=== PATIENT | female | born 1970 | race Caucasian/White ===

== ENCOUNTER 2019-03-10 07:38 | Emergency (ER) | payer BC, OTHER ==
[~2019-03-10] VITALS: Ht 167.6 cm; Wt 88.6 kg
[2019-03-10 07:40] VITALS: BP 134/75
--- NOTE | 2019-03-10 07:51 | NUR ---
PATIENT AMBULATED TO BED 8 AT THIS TIME.
--- NOTE | 2019-03-10 08:10 | NUR ---
49 YO F BIB SELF C/O HEART PALPITATION X 1 WEEK AND HEADACHE 3/10 X 1 TODAY RADIATING TO LEFT ARM. PT DENIES TRAUMA, -N/V/D. PREVIOUS MEDICAL HX: DM,HTN,ANGINA, HYPERLIPIDEMIA. CONNECTED TO MONITOR WITH V/S STABLE. AWAITING FOR ER MD FOR FURTHER EVALUATION. SIDERAIL UP X1 FOR SAFETY.
--- NOTE | 2019-03-10 08:15 | NUR ---
GISEL CAMACHO AT BEDSIDE EVALUATING PT.
--- NOTE | 2019-03-10 08:32 | NUR ---
Radiology at bedside for x -ray
[2019-03-10 08:47] LABS: ANION GAP 10.4 (8-16); CARBON DIOXIDE 28.7 mmol/L (21-32); CREATININE 0.6 mg/dL (0.6-1.3); POTASSIUM 4.1 mmol/L (3.5-5.1)
[2019-03-10 08:56] LABS: BASOPHILS # (AUTO) 0.1 K/uL (0.00-0.22); BASOPHILS % (AUTO) 1.2 % (0.0-2.0); EOSINOPHILS # (AUTO) 0.1 K/uL (0-0.4); EOSINOPHILS % (AUTO) 0.8 % (0.0-4.0); HEMATOCRIT 40.8 % (36-48); HEMOGLOBIN 13.5 g/dL (12.0-16.0); LYMPHOCYTES # (AUTO) 2.2 K/uL (2.5-16.5); LYMPHOCYTES % (AUTO) 32.6 % (20.5-51.1); MEAN CORPUSCULAR HEMOGLOBIN 27 pg (27-31); MEAN CORPUSCULAR HGB CONC 33 g/dL (33-37); MEAN CORPUSCULAR VOLUME 80.9 fL (80-94); MONOCYTES # (AUTO) 0.4 K/uL (0.8-1.0); MONOCYTES % (AUTO) 6.4 % (1.7-9.3); PLATELET COUNT (AUTO) 174 K/uL (140-450); RED BLOOD CELL COUNT(AUTO) 5.05 MIL/uL (4.20-5.40); RED CELL DISTRIBUTION WIDTH 15.3 % (11.6-13.7); WHITE BLOOD COUNT (AUTO) 6.8 K/uL (4.8-10.8)
[2019-03-10 09:02] LABS: ALBUMIN 3.7 g/dL (3.4-5.0); THYROID STIMULATING HORMONE 1.48 uIU/mL (0.34-3.74); TOTAL BILIRUBIN 0.3 mg/dL (0.0-1.0)
[2019-03-10 09:37] VITALS: BP 136/73
--- NOTE | 2019-03-10 09:38 | NUR ---
Patient discharged with v/s stable. Written and verbal after care instructions given and explained. Patient verbalized understanding. Ambulatory with steady gait. All questions addressed prior to discharge. Advised to follow up with PMD and resident care director.
== END 2019-03-10 09:38 | disposition home or self-care (01) ==
LOC: MED 07:38
DX: R00.2 Palpitations (principal); E11.9 Type 2 diabetes mellitus without complications; I10 Essential (primary) hypertension; Z88.5 Allergy status to narcotic agent
CPT/HCPCS: 36415; 71045; 80053; 81002; 81025; 82948; 84443; 84484; 85025; 93005; 99284; Q0092

== ENCOUNTER 2020-01-02 09:09 | Emergency (ER) | payer OTHER ==
[~2020-01-02] VITALS: Ht 165.1 cm; Wt 82.1 kg
[2020-01-02 09:11] VITALS: BP 164/111
--- NOTE | 2020-01-02 09:15 | NUR ---
Patient ambulated to bed 11. RN evaluating patient at bedside.
--- NOTE | 2020-01-02 09:18 | NUR ---
PT TO RESTROOM
[2020-01-02] MEDS ORDERED: KETOROLAC 15 MG/ML VIAL IVP ONE (09:25)
--- NOTE | 2020-01-02 09:35 | NUR ---
49YO F C/O FLANK PAIN X 30MINS. PT STATES A SUDDEN STABBING PAIN 10/10 WHEN SHE WAS STANDING UP FROM A BENDING POSITION. PT STATES THAT PAIN STARTED IN FLANK AREA AND SPREAD TO ABDOMINAL AREA. DENIES N/V, URINARY SYMPTOMS. PT TOOK IBUPROFEN 30MINS AGO WHICH PROVIDED NO RELIEF. VSS. ABDOMEN IS TENDER ON EPIGASTRIC AND RLQ. BOWEL SOUNDS ACTIVE. PT IN BED POSITIONED COMFORTABLY. ER MD SAW PT AT BEDSIDE. PMH: DM, ASTHMA, HTN, HYPERCHOLESTEROLEMIA MEDS: METFORMIN, INSULIN, HCTZ, LOSARTAN, MOTELUKAST, ASPIRIN, ATORVASTATIN ALLERGY: MORPHINE
[2020-01-02 09:55] LABS: BASOPHILS % (AUTO) 0.6 % (0.0-2.0); EOSINOPHILS % (AUTO) 0.5 % (0.0-4.0); HEMATOCRIT 39.8 % (36-48); LYMPHOCYTES # (AUTO) 1.8 K/uL (2.5-16.5); LYMPHOCYTES % (AUTO) 29.6 % (20.5-51.1); MEAN CORPUSCULAR HEMOGLOBIN 27 pg (27-31); MEAN CORPUSCULAR HGB CONC 33 g/dL (33-37); MEAN CORPUSCULAR VOLUME 82.5 fL (80-94); MONOCYTES # (AUTO) 0.4 K/uL (0.8-1.0); NEUTROPHILS # (AUTO) 3.9 K/uL (1.8-7.7); NEUTROPHILS % (AUTO) 63.3 % (42.2-75.2); PLATELET COUNT (AUTO) 173 K/uL (140-450); RED BLOOD CELL COUNT(AUTO) 4.82 MIL/uL (4.20-5.40); RED CELL DISTRIBUTION WIDTH 15.5 % (11.6-13.7); WHITE BLOOD COUNT (AUTO) 6.1 K/uL (4.8-10.8)
[2020-01-02 09:55] LABS: APPEARANCE,URINE SL CLOUDY (CLEAR); BILIRUBIN,URINE NEGATIVE (NEGATIVE); BLOOD, URINE 3+ (NEGATIVE); COLOR,URINE YELLOW (YELLOW); LEUKOCYTE ESTERASE ,URINE NEGATIVE (NEGATIVE); NITRITE, URINE NEGATIVE (NEGATIVE); PH,URINE 5.5 (5.0-9.0); UGLUCOSE 3+ (NEGATIVE)
[2020-01-02 10:18] LABS: RBC,URINE 80-100 /HPF (0-5); WBC,URINE 0-5 /HPF (0-5)
[2020-01-02 10:27] LABS: ALBUMIN 3.4 g/dL (3.4-5.0); ANION GAP 11.5 (8-16); CARBON DIOXIDE 28.4 mmol/L (21-32); CREATININE 0.7 mg/dL (0.6-1.3); POTASSIUM 3.9 mmol/L (3.5-5.1); TOTAL BILIRUBIN 0.4 mg/dL (0.0-1.0)
[2020-01-02 11:40] VITALS: BP 164/111
== END 2020-01-02 11:30 | disposition home or self-care (01) ==
LOC: MED 09:09
DX: R10.9 Unspecified abdominal pain (principal); J45.909 Unspecified asthma, uncomplicated; E11.9 Type 2 diabetes mellitus without complications; I10 Essential (primary) hypertension; Z88.5 Allergy status to narcotic agent
CPT/HCPCS: 36415; 74177; 80053; 81001; 83690; 85025; 96374; 99285; J1885; Q9967

== ENCOUNTER 2020-10-16 15:40 | Emergency (ER) | payer OTHER, SELFPAY ==
[~2020-10-16] VITALS: Ht 160 cm; Wt 95.3 kg
[2020-10-16 15:56] VITALS: BP 132/78
--- NOTE | 2020-10-16 16:09 | NUR ---
PATIENT PRESENTS TO ED WITH FLU LIKE SYMPTOMS FOR 2 DAYS. DENIES N/V/D; SKIN IS PINK/WARM/DRY; AAOX4 WITH EVEN AND STEADY GAIT; LUNGS CLEAR BL; HR EVEN AND REGULAR; PT DENIES ANY FEVER, CP, SOB, OR COUGH AT THIS TIME; PATIENT STATES PAIN OF 0/10 AT THIS TIME; VSS; PATIENT POSITIONED FOR COMFORT; HOB ELEVATED; BEDRAILS UP X2; BED DOWN. ER MD MADE AWARE OF PT STATUS.
[2020-10-16] MEDS ORDERED: KETOROLAC 30 MG/ML VIAL IM ONE (16:15)
--- NOTE | 2020-10-16 16:18 | NUR ---
PT TAKEN TO BED 1. AMBULATORY WITH STEADY GAIT.
--- NOTE | 2020-10-16 16:30 | NUR ---
Patient swabbed for COVID-19 and sent to lab
[2020-10-16 17:30] VITALS: BP 125/72
--- NOTE | 2020-10-16 17:37 | NUR ---
Patient medically cleared for discharged by MD with v/s stable. Written and verbal after care instructions given and explained in Occitan. Patient alert, oriented and verbalized understanding of instructions. Ambulatory with steady gait. All questions addressed prior to discharge. ID band removed. Patient advised to follow up with PMD. Rx of tylenol and naprosyn given. Patient educated on indication of medication including possible reaction and side effects. Opportunity to ask questions provided and answered. All belongings taken with patient from the ED
--- NOTE | 2020-10-18 06:36 | NUR ---
late entry---- Covid result Positive. requested hard copy from Lab. copy of report sent over to infection control .
== END 2020-10-16 16:30 | disposition home or self-care (01) ==
LOC: MED 15:40
DX: M79.10 Myalgia, unspecified site (principal); R53.1 Weakness; J45.909 Unspecified asthma, uncomplicated; E11.9 Type 2 diabetes mellitus without complications; I10 Essential (primary) hypertension; Z98.890 Other specified postprocedural states; Z88.5 Allergy status to narcotic agent
CPT/HCPCS: 71045; 96372; 99284; J1885; U0003

== ENCOUNTER 2022-09-29 04:09 | Emergency (ER) | payer OTHER ==
[~2022-09-29] VITALS: Ht 167.6 cm; Wt 77.1 kg
[~2022-09-29 04:09] MED LIST: ALBU0.0912 INH; APIX5TAB PO; DEC4 PO; METF-1139 PO; MONT10TA35 PO
[2022-09-29 04:12] VITALS: BP 130/85
--- NOTE | 2022-09-29 04:12 | NUR ---
TO BED AMBULATORY
[2022-09-29] MEDS ORDERED: ONDANSETRON 4 MG/2 ML VIAL IVP ONE (04:40)
--- NOTE | 2022-09-29 04:45 | NUR ---
52yo f bib self with c/c of 9/10 RUQ pain rad to back xsaturday. pt states she ate a burrito and began to felt sick afterwards. states she a few episodes of vomiting. reports during one episode of vomiting she felt a pop in RUQ and having abd distention. reports n/v has subsided. pt took tylenol with little relief. abd is distended. bowel sounds decreased x2 upper quads. tender with touch. pt reports last bm was yesterday and was normal. hx:dm, htn rx:metformin and losartan allergy:morphine
--- NOTE | 2022-09-29 04:45 | NUR ---
Note undone in EDM - 09/29/22 at 0459 by [facility] 52yo f bib self with c/c of 9/10 LUQ pain rad to back xsaturday. pt states she ate a burrito and began to felt sick afterwards. states she a few episodes of vomiting. reports during one episode of vomiting she felt a pop in luq and having abd distention. reports n/v has subsided. pt took tylenol with little relief. abd is distended. bowel sounds decreased x2 upper quads. tender with touch. pt reports last bm was yesterday and was normal. hx:dm, htn rx:metformin and losartan allergy:morphine
--- NOTE | 2022-09-29 04:53 | NUR ---
pt taken to ct via rantoine.
--- NOTE | 2022-09-29 05:03 | NUR ---
ADDISON ESCALERA EXAMINING AT BEDSIDE.
--- NOTE | 2022-09-29 05:03 | NUR ---
PT BACK FROM CT VIA [facility].
[2022-09-29] MEDS ORDERED: KETOROLAC 30 MG/ML VIAL IVP ONE (05:05)
[2022-09-29] MEDS ORDERED: KETOROLAC 30 MG/ML VIAL ONE (05:08)
[2022-09-29 05:14] LABS: BASOPHILS % (AUTO) 0.4 % (0.0-2.0); EOSINOPHILS # (AUTO) 0.1 K/uL (0-0.4); EOSINOPHILS % (AUTO) 1.3 % (0.0-4.0); HEMATOCRIT 38.5 % (36-48); HEMOGLOBIN 12.9 g/dL (12.0-16.0); LYMPHOCYTES # (AUTO) 1.6 K/uL (2.5-16.5); LYMPHOCYTES % (AUTO) 37.7 % (20.5-51.1); MEAN CORPUSCULAR HEMOGLOBIN 28 pg (27-31); MEAN CORPUSCULAR HGB CONC 34 g/dL (33-37); MONOCYTES # (AUTO) 0.3 K/uL (0.8-1.0); NEUTROPHILS # (AUTO) 2.3 K/uL (1.8-7.7); NEUTROPHILS % (AUTO) 53.6 % (42.2-75.2); PLATELET COUNT (AUTO) 171 K/uL (140-450); RED BLOOD CELL COUNT(AUTO) 4.64 MIL/uL (4.20-5.40); RED CELL DISTRIBUTION WIDTH 15.3 % (11.6-13.7); WHITE BLOOD COUNT (AUTO) 4.4 K/uL (4.8-10.8)
[2022-09-29 05:42] LABS: APPEARANCE,URINE CLOUDY (CLEAR); BILIRUBIN,URINE NEGATIVE (NEGATIVE); BLOOD, URINE NEGATIVE (NEGATIVE); COLOR,URINE YELLOW (YELLOW); LEUKOCYTE ESTERASE ,URINE NEGATIVE (NEGATIVE); NITRITE, URINE NEGATIVE (NEGATIVE); UGLUCOSE 2+ (NEGATIVE)
[2022-09-29 05:44] LABS: CARBON DIOXIDE 26.4 mmol/L (21-32); CREATININE 0.7 mg/dL (0.6-1.3); TOTAL BILIRUBIN 0.3 mg/dL (0.0-1.0)
[2022-09-29] MEDS ORDERED: HYDROcodone/APAP 5/325 MG 1 TAB TAB PO ONE (05:55)
[2022-09-29] MEDS ORDERED: ACET-8386 PO (05:59)
[2022-09-29 06:05] LABS: POTASSIUM 3.4 mmol/L (3.5-5.1)
[2022-09-29 06:13] VITALS: BP 155/87
== END 2022-09-29 06:13 | disposition home or self-care (01) ==
LOC: MED 04:09
DX: R10.11 Right upper quadrant pain (principal); I10 Essential (primary) hypertension; E11.9 Type 2 diabetes mellitus without complications; I25.10 Atherosclerotic heart disease of native coronary artery without angina pectoris; J45.909 Unspecified asthma, uncomplicated; Z79.4 Long term (current) use of insulin; Z79.899 Other long term (current) drug therapy; Z98.890 Other specified postprocedural states
CPT/HCPCS: 36415; 74176; 80053; 81003; 81025; 83690; 85025; 96374; 99284; J1885

== ENCOUNTER 2022-12-17 07:17 | Emergency (ER) | payer OTHER ==
[~2022-12-17] VITALS: Ht 165.1 cm; Wt 75.7 kg
[~2022-12-17 07:17] MED LIST changes: +ACET-8905 PO
[2022-12-17 07:23] VITALS: BP 144/78
[2022-12-17] MEDS ORDERED: ASPIRIN 81 MG TAB.CHEW PO ONE (07:40)
--- NOTE | 2022-12-17 07:49 | NUR ---
52/F WALKED IN C/O SUBSTERNAL CHEST PRESSURE X 2DAYS ACCOMPANIED BY SOB. DENIES PAIN RADIATION. REPORTS PAIN CONSTANT. AAO4, AMBULATORY, VITALS STABLE. IV ESTABLISHED TO RIGHT AC WITH 20G. BLOOD DRAWN. ON PARTS CLASSIFIER. NO ACUTE DISTRESS NOTED. PMH: DM, HTN, CHOLESTEROL
[2022-12-17] MEDS ORDERED: KETOROLAC 30 MG/ML VIAL IM ONE (08:00)
[2022-12-17] MEDS ORDERED: HYDROcodone/APAP 5/325 MG 1 TAB TAB PO ONE (08:00)
[2022-12-17 08:01] LABS: BASOPHILS % (AUTO) 0.5 % (0.0-2.0); EOSINOPHILS % (AUTO) 0.3 % (0.0-4.0); HEMATOCRIT 40.7 % (36-48); HEMOGLOBIN 13.5 g/dL (12.0-16.0); LYMPHOCYTES # (AUTO) 1.3 K/uL (2.5-16.5); LYMPHOCYTES % (AUTO) 22.1 % (20.5-51.1); MEAN CORPUSCULAR HEMOGLOBIN 27 pg (27-31); MEAN CORPUSCULAR HGB CONC 33 g/dL (33-37); MEAN CORPUSCULAR VOLUME 82.5 fL (80-94); MONOCYTES # (AUTO) 0.3 K/uL (0.8-1.0); MONOCYTES % (AUTO) 5.1 % (1.7-9.3); NEUTROPHILS # (AUTO) 4.4 K/uL (1.8-7.7); PLATELET COUNT (AUTO) 184 K/uL (140-450); RED BLOOD CELL COUNT(AUTO) 4.93 MIL/uL (4.20-5.40); RED CELL DISTRIBUTION WIDTH 14.8 % (11.6-13.7); WHITE BLOOD COUNT (AUTO) 6.1 K/uL (4.8-10.8)
[2022-12-17 08:27] LABS: ANION GAP 14.4 (8-16); ASPARTATE AMINOTRANSFERASE 28 U/L (15-37); CARBON DIOXIDE 25.1 mmol/L (21-32); CHLORIDE 100 mmol/L (98-107); CREATININE 0.7 mg/dL (0.6-1.3); GFR ARICAN-AMERICAN 112 mL/min (>90); GLUCOSE 321 mg/dL (74-106); LIPASE 77 U/L (73-393); POTASSIUM 3.5 mmol/L (3.5-5.1); SODIUM SERUM 136 mmol/L (136-145); TOTAL BILIRUBIN 0.4 mg/dL (0.0-1.0); UREA NITROGEN, BLOOD 13 mg/dL (7-18)
[2022-12-17] MEDS ORDERED: CYCL-711 PO (09:46)
[2022-12-17] MEDS ORDERED: NAPR-54 PO (09:46)
[2022-12-17 09:51] VITALS: BP 128/71
== END 2022-12-17 09:55 | disposition home or self-care (01) ==
LOC: MED 07:17
DX: R07.89 Other chest pain (principal); R06.02 Shortness of breath; M25.512 Pain in left shoulder; J45.909 Unspecified asthma, uncomplicated; E11.9 Type 2 diabetes mellitus without complications; I10 Essential (primary) hypertension; Z79.899 Other long term (current) drug therapy; Z88.5 Allergy status to narcotic agent; Z79.84 Long term (current) use of oral hypoglycemic drugs
CPT/HCPCS: 36415; 71045; 80053; 83690; 84484; 85025; 85379; 93005; 96372; 99285; J1885; Q0092

== ENCOUNTER 2023-01-19 18:58 | Emergency (ER) | payer OTHER ==
[~2023-01-19] VITALS: Ht 165.1 cm; Wt 75.7 kg
[~2023-01-19 18:58] MED LIST changes: +CYCL-711 PO; +NAPR-54 PO
[2023-01-19 19:15] VITALS: BP 127/93
--- NOTE | 2023-01-19 19:38 | NUR ---
Patient taken to bed 3.
[2023-01-19] MEDS ORDERED: HYDROmorphone PFS 2 MG/ML SYR IVP ONE (20:10)
[2023-01-19] MEDS ORDERED: NACL 0.9% 1,000 ML IV ONE ×2 (20:10→21:20)
[2023-01-19] MEDS ORDERED: ONDANSETRON 4 MG/2 ML VIAL IVP ONE (20:10)
--- NOTE | 2023-01-19 20:11 | NUR ---
pt is for neausea nd vomitting 20 times. Abd pain in epigastric area. Alert and oriented x4. room air
[2023-01-19 20:26] LABS: BASOPHILS % (AUTO) 0.1 % (0.0-2.0); EOSINOPHILS % (AUTO) 0.2 % (0.0-4.0); HEMATOCRIT 47.3 % (36-48); HEMOGLOBIN 15.7 g/dL (12.0-16.0); LYMPHOCYTES # (AUTO) 1.2 K/uL (2.5-16.5); LYMPHOCYTES % (AUTO) 9.2 % (20.5-51.1); MEAN CORPUSCULAR HEMOGLOBIN 27 pg (27-31); MEAN CORPUSCULAR HGB CONC 33 g/dL (33-37); MEAN CORPUSCULAR VOLUME 81.8 fL (80-94); MONOCYTES % (AUTO) 7.6 % (1.7-9.3); NEUTROPHILS # (AUTO) 10.5 K/uL (1.8-7.7); NEUTROPHILS % (AUTO) 82.9 % (42.2-75.2); PLATELET COUNT (AUTO) 251 K/uL (140-450); RED BLOOD CELL COUNT(AUTO) 5.78 MIL/uL (4.20-5.40); RED CELL DISTRIBUTION WIDTH 15.4 % (11.6-13.7); WHITE BLOOD COUNT (AUTO) 12.7 K/uL (4.8-10.8)
[2023-01-19 20:46] LABS: ALBUMIN 4.5 g/dL (3.4-5.0); ANION GAP 15.7 (8-16); CARBON DIOXIDE 24.4 mmol/L (21-32); CREATININE 0.7 mg/dL (0.6-1.3); POTASSIUM 3.1 mmol/L (3.5-5.1); TOTAL BILIRUBIN 0.4 mg/dL (0.0-1.0)
[2023-01-19] MEDS ORDERED: KCL 20 MEQ/WATER INJ PREMIX 100 ML IV ONE (20:50)
[2023-01-19 22:38] LABS: APPEARANCE,URINE CLEAR (CLEAR); BILIRUBIN,URINE NEGATIVE (NEGATIVE); BLOOD, URINE NEGATIVE (NEGATIVE); COLOR,URINE YELLOW (YELLOW); LEUKOCYTE ESTERASE ,URINE NEGATIVE (NEGATIVE); NITRITE, URINE NEGATIVE (NEGATIVE); PH,URINE 5.5 (5.0-9.0); UGLUCOSE 3+ (NEGATIVE)
[2023-01-20] MEDS ORDERED: SUCR1TAB35 PO (00:19)
[2023-01-20] MEDS ORDERED: FAMO-90 PO (00:19)
[2023-01-20] MEDS ORDERED: SIME125T38 PO (00:19)
[2023-01-20] MEDS ORDERED: ONDA-188 SL (00:19)
[2023-01-20 01:06] VITALS: BP 128/86
--- NOTE | 2023-01-20 01:07 | NUR ---
Patient discharged with v/s stable. Written and verbal after care instructions given and explained. Patient verbalized understanding. Ambulatory with steady gait. All questions addressed prior to discharge. Advised to follow up with PMD. pt left with her belongings
--- NOTE | 2023-01-23 07:48 | NUR ---
LATE ENTRY -- CONFIRMED WITH NURSE, POTASSIUM INFUSION END TIME IS [id number] 01/19/23
== END 2023-01-20 01:06 | disposition home or self-care (01) ==
LOC: MED 18:58
DX: A08.4 Viral intestinal infection, unspecified (principal); R00.0 Tachycardia, unspecified; J45.909 Unspecified asthma, uncomplicated; E11.9 Type 2 diabetes mellitus without complications; I10 Essential (primary) hypertension; Z98.890 Other specified postprocedural states; Z79.899 Other long term (current) drug therapy; Z79.1 Long term (current) use of non-steroidal anti-inflammatories (NSAID); Z79.891 Long term (current) use of opiate analgesic; Z79.01 Long term (current) use of anticoagulants; Z88.5 Allergy status to narcotic agent
CPT/HCPCS: 36415; 74177; 80053; 81003; 83605; 83690; 85025; 96361; 96365; 96366; 96375; 99285; J1170; J2405; J3480; J7030; Q9967; 96374

== ENCOUNTER 2023-06-08 14:03 | Emergency (ER) | payer OTHER ==
[~2023-06-08] VITALS: Ht 167.6 cm; Wt 79.4 kg
[~2023-06-08 14:03] MED LIST changes: +FAMO-90 PO; +MONT-72 PO; -MONT10TA35 PO; +ONDA-188 SL; +SIME125T38 PO; +SUCR1TAB35 PO
[2023-06-08 14:46] VITALS: BP 125/82; PULSE 68; RESP 18; TEMP 98; O2SAT 99
[2023-06-08] MEDS ORDERED: KETOROLAC 30 MG/ML VIAL IM ONE (15:50)
[2023-06-08] MEDS ORDERED: ACET-10509 PO (15:52)
[2023-06-08] MEDS ORDERED: IBUP-1842 PO (15:52)
[2023-06-08] MEDS ORDERED: BACI-418 TP (15:53)
[2023-06-08 16:10] VITALS: BP 125/82; PULSE 68; RESP 18; TEMP 98; O2SAT 99
--- NOTE | 2023-06-08 16:10 | NUR ---
PER PA, PT WAS SEEN/EVALUATED/DISCHARED BY HER.
--- NOTE | 2023-06-08 17:21 | NUR ---
Lokesh whitney in EDM - 06/08/23 at 1729 by [facility] PER PA, PT WAS SEEN/EVALUATED/DISCHARED BY HER.
== END 2023-06-08 16:10 | disposition home or self-care (01) ==
LOC: MED 14:03
DX: S20.20XA Contusion of thorax, unspecified, initial encounter (principal); S70.01XA Contusion of right hip, initial encounter; S80.211A Abrasion, right knee, initial encounter; J45.909 Unspecified asthma, uncomplicated; E11.9 Type 2 diabetes mellitus without complications; I10 Essential (primary) hypertension; Z88.5 Allergy status to narcotic agent; Z79.84 Long term (current) use of oral hypoglycemic drugs; Z79.899 Other long term (current) drug therapy; W19.XXXA Unspecified fall, initial encounter; Y93.89 Activity, other specified; Y92.89 Other specified places as the place of occurrence of the external cause; Y99.8 Other external cause status
CPT/HCPCS: 71101; 96372; 99283; J1885